=== PATIENT | male | born 1955 | race Caucasian/White ===

== ENCOUNTER 2016-11-09 13:06 | Emergency (ER) | payer MEDICAID ==
[~2016-11-09] VITALS: Ht 188 cm; Wt 90.0 kg
[2016-11-09 13:41] VITALS: BP 132/74
== END 2016-11-09 14:17 | disposition home or self-care (01) ==
LOC: ED 14:09
DX: E11.65 Type 2 diabetes mellitus with hyperglycemia (principal); Z76.0 Encounter for issue of repeat prescription
CPT/HCPCS: 82962; 99283

== ENCOUNTER 2016-11-27 15:01 | Emergency (ER) | payer MEDICAID ==
[~2016-11-27] VITALS: Ht 188 cm; Wt 93.9 kg
[2016-11-27 15:02] VITALS: BP 127/78
== END 2016-11-27 16:06 | disposition home or self-care (01) ==
LOC: ED 15:16
DX: G89.29 Other chronic pain (principal); Z76.0 Encounter for issue of repeat prescription; E11.65 Type 2 diabetes mellitus with hyperglycemia
CPT/HCPCS: 82962; 99283